=== PATIENT | female | born 1955 ===

== ENCOUNTER 2021-09-18 08:00 | Outpatient (CLI) | payer MEDICARE, OTHER ==
[2021-09-18 16:02] LABS: BILIRUBIN,URINE NEGATIVE (NEGATIVE); GLUCOSE, URINE (UA) NEGATIVE (NEGATIVE); KETONES,URINE (UA) NEGATIVE (NEGATIVE); LEUKOCYTE ESTERASE, URINE NEGATIVE (NEGATIVE); NITRITE,URINE NEGATIVE (NEGATIVE); OCCULT BLOOD,URINE TRACE-INTA (NEGATIVE); PROTEIN,URINE NEGATIVE (NEGATIVE); UROBILINOGEN,URINE 0.2 (NORMAL) E.U./dL (NORMAL)
[2021-09-18 16:07] LABS: CLARITY,URINE CLEAR (CLEAR)
== END 2021-09-18 23:59 | disposition home or self-care (01) ==
LOC: LAB.R 08:00
PROVIDERS: ATTEND Internal Medicine
DX: R68.83 Chills (without fever) (principal); R39.9 Unspecified symptoms and signs involving the genitourinary system
CPT/HCPCS: 81003; 87086

== ENCOUNTER 2021-11-08 12:46 | Outpatient (CLI) | payer MEDICARE ==
[2021-11-08 13:18] LABS: ALBUMIN 4.4 g/dL (3.2-5.5); ALBUMIN/GLOBULIN RATIO 1.4 (1.0-2.2); ALKALINE PHOSPHATASE 70 IU/L (42-121); ALT ALANINE AMINOTRANSFERASE 17 IU/L (10-60); AST ASPARTATE AMINOTRANSFERASE 19 IU/L (10-42); BILIRUBIN,TOTAL 0.3 mg/dL (0.2-1.0); BUN - BLOOD UREA NITROGEN 13 mg/dL (6-20); CALCIUM 9.6 mg/dL (8.5-10.3); CARBON DIOXIDE - CO2 27 mmol/L (21-32); CHLORIDE 101 mmol/L (101-111); CHOLESTEROL 270 mg/dL; CREATININE 0.7 mg/dL (0.4-1.0); GFR - MDRD 83 (>89); GLUCOSE 92 mg/dL (70-100); HDL CHOLESTEROL 65 mg/dL; LDL CHOLESTEROL,CALCULATED 190 mg/dL; SODIUM 138 mmol/L (135-145); TOTAL PROTEIN 7.5 g/dL (6.7-8.2); TRIGLYCERIDES 74 mg/dL; VLDL CHOLESTEROL 15 mg/dL
[2021-11-08 13:19] LABS: CHOL/HDL RATIO 4.2 (<4.4); LDL/HDL RATIO 2.9 (<4.4)
[2021-11-08 13:31] LABS: THYROID STIMULATING HORMONE 2.32 uIU/mL (0.34-5.60)
[2021-11-08 13:51] LABS: BILIRUBIN,URINE NEGATIVE (NEGATIVE); GLUCOSE, URINE (UA) NEGATIVE (NEGATIVE); KETONES,URINE (UA) NEGATIVE (NEGATIVE); LEUKOCYTE ESTERASE, URINE NEGATIVE (NEGATIVE); NITRITE,URINE NEGATIVE (NEGATIVE); OCCULT BLOOD,URINE TRACE-INTA (NEGATIVE); PROTEIN,URINE NEGATIVE (NEGATIVE); UROBILINOGEN,URINE 0.2 (NORMAL) E.U./dL (NORMAL)
[2021-11-08 13:52] LABS: CLARITY,URINE CLEAR (CLEAR)
[2021-11-08 14:42] LABS: BACTERIA,URINE Rare /HPF (None Seen); RBC,URINE 0-5 /HPF (0-5); SQUAMOUS EPITHELIAL CELL,UR RARE Squamous (<= Few); WBC,URINE 0-3 /HPF (0-5)
[2021-11-08 16:05] LABS: BASOPHILS % (AUTO) 0.5 %; EOSINOPHILS # (AUTO) 0.4 10^3/uL (0.0-0.7); EOSINOPHILS % (AUTO) 4.7 %; HCT - HEMATOCRIT 47.9 % (37.0-47.0); HGB - HEMOGLOBIN 15.3 g/dL (12.0-16.0); LYMPHOCYTES # (AUTO) 1.4 10^3/uL (1.5-3.5); LYMPHOCYTES % (AUTO) 18.4 %; MEAN CORPUSCULAR HEMOGLOBIN 29.5 pg (27.0-31.0); MEAN CORPUSCULAR HGB CONC 31.9 g/dL (32.0-36.0); MEAN CORPUSCULAR VOLUME 92.5 fL (81.0-99.0); MEAN PLATELET VOLUME 10.2 fL (7.9-10.8); MONOCYTES # (AUTO) 0.7 10^3/uL (0.0-1.0); MONOCYTES % (AUTO) 8.7 %; NEUTROPHILS # (AUTO) 5.3 10^3/uL (1.5-6.6); NEUTROPHILS % (AUTO) 67.3 %; PLT - PLATELET COUNT 260 10^3/uL (130-450); RED BLOOD COUNT 5.18 10^6/uL (4.20-5.40); RED CELL DISTRIBUTION WIDTH 13.4 % (12.0-15.0); WHITE BLOOD COUNT 7.8 x10^3/uL (4.8-10.8)
== END 2021-11-08 12:47 | disposition home or self-care (01) ==
LOC: LAB.R 12:46
PROVIDERS: ATTEND Internal Medicine
DX: Z00.00 Encounter for general adult medical examination without abnormal findings (principal); R53.83 Other fatigue; Z13.6 Encounter for screening for cardiovascular disorders; N76.0 Acute vaginitis
CPT/HCPCS: 80053; 80061; 81001; 82607; 83721; 84443; 85025; 87086

== ENCOUNTER 2022-01-24 08:51 | Outpatient (CLI) | payer MEDICARE ==
--- NOTE | 2022-01-24 11:02 | Ultrasound Report ---
PROCEDURE: Pelvic w/Transvaginal INDICATIONS: RLQ ABD PAIN TECHNIQUE: Real-time scanning was performed of the pelvic organs, with image documentation. Additional endovagi nal scanning was necessary due to incomplete visualization of the adnexal and endometrial structures by transabdominal scanning. COMPARISON: None. FINDINGS: Uterus: Uterus is anteverted and normal in size at 6.7 x 3.7 x 4.3 cm. The myometrium is homogeneou s. The endometrium measures 3.4 mm in combined thickness. There appears to be a small right-sided anterior subserosal fibroid measuring 2.1 cm in maximal dimen nadeem. There are 2 calcifications present within the myometrium measuring 1.8 and a 1.1 cm respectivel y which likely represent calcified uterine fibroids. Ovaries: The right ovary is not visualized. The left ovary measures 1.9 x 1.5 x 1.2 cm, with a calculated ovarian volume of 1.8 cc. The ovaries have a normal sonographic appearance. No adnexal masses are seen. Other: No pathologic free abdominal or pelvic fluid. IMPRESSION: 1. Calcified and noncalcified uterine fibroids. The largest right subserosal fibroid measures 1.2 cm in maximal dimension. 2. Right ovary not definitely visualized. Reviewed by: Jama Richmond MD on 01/24/2022 11:01 AM PDT Approved by: Jama Richmond MD on 01/24/2022 11:01 AM PDT Station ID: [id number]
== END 2022-01-24 08:52 | disposition home or self-care (01) ==
LOC: DI 08:51
PROVIDERS: ATTEND Obstetrics & Gynecology
DX: D25.2 Subserosal leiomyoma of uterus (principal)

== ENCOUNTER 2022-03-05 10:01 | Outpatient (CLI) | payer MEDICARE | END 2022-03-05 10:02 | disposition EMS.NT | LOC: EMS 10:01 | DX: Z04.1 Encounter for examination and observation following transport accident (principal) ==

== ENCOUNTER 2023-05-03 14:49 | Outpatient (CLI) | payer MEDICARE ==
--- NOTE | 2023-05-03 15:41 | XRAY Report ---
PROCEDURE: Ankle 3 View RT INDICATIONS: ANKLE PAIN TECHNIQUE: 3 views of the ankle were acquired. COMPARISON: None. FINDINGS: Bones: Curvilinear calcification along the medial aspect of the medial malleolus. Rounded calcificat ion along the inferior aspect of the lateral malleolus. Soft tissues: Moderate tibiotalar joint effusion. Achilles tendon appears normal. IMPRESSION: Age-indeterminate fractures of the medial and lateral malleoli. Reviewed by: Silvio Linder MD on 05/03/2023 3:40 PM PST Approved by: Silvio Linder MD on 05/03/2023 3:40 PM PST Station ID: [id number]
--- NOTE | 2023-05-03 15:41 | XRAY Report ---
PROCEDURE: Foot 3 View RT INDICATIONS: ANKLE PAIN TECHNIQUE: 3 views of the foot were acquired. COMPARISON: None. FINDINGS: Bones: Healed fifth metatarsal shaft fracture. Marked hallux valgus with moderate degenerative beaver es at this joint. Soft tissues: No suspicious soft tissue calcifications or masses. IMPRESSION: Healed fifth metatarsal fracture deformity. Reviewed by: Silvio Linder MD on 05/03/2023 3:40 PM [facility] Approved by: Silvio Linder MD on 05/03/2023 3:40 PM [facility] Station ID: [id number]
== END 2023-05-03 14:50 | disposition home or self-care (01) ==
LOC: DI 14:49
PROVIDERS: ATTEND Internal Medicine
DX: S92.351D Displaced fracture of fifth metatarsal bone, right foot, subsequent encounter for fracture with routine healing (principal); S82.841D Displaced bimalleolar fracture of right lower leg, subsequent encounter for closed fracture with routine healing

== ENCOUNTER 2023-07-04 08:19 | Outpatient (CLI) | payer MEDICARE ==
--- NOTE | 2023-07-04 13:51 | DEXA Report ---
PROCEDURE: Dexa Spine and/or Hip INDICATIONS: POST MENOAPUSAL TECHNIQUE: Dual energy x-ray absorptiometry (DXA) was performed on a [employer]. Regions measur ed are the AP Spine, femoral neck, and if needed forearm. COMPARISON: None FINDINGS: Lumbar Spine: Bone Mineral Density: 0.943 g/cm/cm,T score: -2.0. Left Femoral Neck: Bone Mineral Density: 0.847 g/cm/cm, T score: -1.4. Left Hip: Bone Mineral Density: 0.807 g/cm/cm,T score: -1.6. (T score greater or equal to -1.0: NORMAL) (T score from -1.1 to -2.4: OSTEOPENIA) (T score less than or equal to -2.5 to: OSTEOPOROSIS) Impression: By WHO criteria, this patient has low bone density (osteopenia). Patients with diagnosis of osteoporosis or osteopenia should have regular bone mineral density assess ment. For those eligible for Medicare, routine testing is allowed once every 2 years. Testing frequ ency can be increased for patients who have rapidly progressing disease or for those who are receivin g medical therapy to restore bone mass. Reviewed by: Pavel Combs MD on 07/04/2023 1:49 PM PST Approved by: Pavel Combs MD on 07/04/2023 1:49 PM PST Station ID: [id number]
== END 2023-07-04 08:20 | disposition home or self-care (01) ==
LOC: DI 08:19
PROVIDERS: ATTEND Internal Medicine
DX: Z78.0 Asymptomatic menopausal state (principal); M85.89 Other specified disorders of bone density and structure, multiple sites

== ENCOUNTER 2023-07-11 08:00 | Outpatient (CLI) | payer MEDICARE ==
--- NOTE | 2023-07-11 21:26 | XRAY Report ---
PROCEDURE: Foot 3 View RT INDICATIONS: RIGHT FOOT PAIN TECHNIQUE: 3 views of the foot were acquired. COMPARISON: None. FINDINGS: Bones: Mildly displaced mid fifth metatarsal shaft fracture. Alignment is stable. Mild appearance of interval callus formation indicating healing. Scattered IP degenerative narrowing. Soft tissues: No suspicious soft tissue calcifications or masses. IMPRESSION: I'll degree of interval healing with stable alignment of fifth metatarsal diaphyseal fracture. Reviewed by: Amberly Franks MD on 07/11/2023 9:25 PM [facility] Approved by: Amberly Franks MD on 07/11/2023 9:25 PM [facility] Station ID: [id number]
--- NOTE | 2023-07-11 21:27 | XRAY Report ---
PROCEDURE: Ankle 3 View RT INDICATIONS: RIGHT ANKLE PAIN TECHNIQUE: 3 views of the ankle were acquired. COMPARISON: Ankle x-ray 05/03/2023 FINDINGS: Bones: As previously identified, calcifications are present along the medial aspect of the medial ma lleolus as well as the inferior lateral malleolus. Appearances are stable. Soft tissues: Mild persistent ankle edema. Achilles tendon appears normal. IMPRESSION: Persistent appearance of age-indeterminate avulsion injuries. Reviewed by: Amberly Franks MD on 07/11/2023 9:26 PM PST Approved by: Amberly Franks MD on 07/11/2023 9:26 PM PST Station ID: [id number]
== END 2023-07-11 23:59 | disposition home or self-care (01) ==
LOC: DI.WOS 08:00
PROVIDERS: ATTEND Physician Assistant Surgical
DX: S92.351A Displaced fracture of fifth metatarsal bone, right foot, initial encounter for closed fracture (principal)

== ENCOUNTER 2024-01-22 07:46 | Day surgery (SDC) | payer MEDICARE ==
[2024-01-22] MEDS: LACTATED RINGERS 1,000 ML IV ONE (07:49)
--- NOTE | 2024-01-22 08:08 | ANESTHESIA ---
Pre-Anesthesia VS, & Labs - Diagnosis abdominal bloating and diarrhea - Procedure diagnostic colonoscopy Height: 5 ft 6 in Weight (kg): 67.2 kg Body Mass Index: 23.9 BMI Classification: Normal - NPO >8 hours Last Fluid Intake: 0530 - Is Patient ?: No Home Medications and Allergies Allergies/Adverse Reactions: Allergies Allergy/AdvReac Type Severity Reaction Status Date / Time fluconazole Allergy Rash Verified 01/22/24 09:15 Anes History & Medical History - Anesthetic History Family history of Anesthesia Complications: Denies Family history of Malignant Hyperthermia: Denies - Medical History Cardiovascular: reports: None Pulmonary: reports: None Gastrointestinal: reports: Chronic diarrhea Urinary: reports: None Neuro: reports: None Musculoskeletal: reports: None Endocrine/Autoimmune: reports: None Blood Disorders: reports: None Skin: reports: None Smoking Status: Never smoker Psychosocial: reports: Cannabis (daily) History of Cancer?: No Exam General: Alert, Oriented x3, Cooperative, No acute distress Dental: Poor dentition Mouth Openin Fingerbreadth Neck Mobility: Normal Mallampati classification: II Thyromental Distance: 4-6 cm Mental/Cognitive Status: Alert/Oriented X3, Normal for patient Plan Anesthesia Type: General, Total IV Consent for Procedure(s) Verified and Reviewed: Yes Code Status: Attempt Resuscitation ASA classification: 2-Mild systemic disease Is this case an emergency?: No
[2024-01-22] MEDS ORDERED: LIDOCAINE-MPF 2% 5 ML VIAL ONE (09:18)
[2024-01-22] MEDS ORDERED: PROPOFOL 500 MG/50 ML 500 MG/50 ML VIAL ONE (09:18)
[2024-01-22] MEDS: LACTATED RINGERS 200 ML IV ONE ×2 (10:56→11:44)
--- NOTE | 2024-01-22 12:50 | ANESTHESIA POST OP EVALUATION ---
Anesthesia Post Eval - Post Anesthesia Eval CV Function Including HR & BP: Stable Pain Control: Satisfactory Nausea & Vomiting: Negative Mental Status: Baseline Respiratory Status: Airway Patent Hydration Status: Satisfactory Anesthesia Complications: None
== END 2024-01-22 07:47 | disposition home or self-care (01) ==
LOC: SDS 07:46
PROVIDERS: ATTEND Surgery
PROC: 0DBL8ZX Excision of Transverse Colon, Via Natural or Artificial Opening Endoscopic, Diagnostic (ICD-10-PCS; 2024-01-22)
PROC: 0DBN8ZX Excision of Sigmoid Colon, Via Natural or Artificial Opening Endoscopic, Diagnostic (ICD-10-PCS; 2024-01-22)
PROC: 0DBP8ZX Excision of Rectum, Via Natural or Artificial Opening Endoscopic, Diagnostic (ICD-10-PCS; 2024-01-22)
PROC: 0DBM8ZX Excision of Descending Colon, Via Natural or Artificial Opening Endoscopic, Diagnostic (ICD-10-PCS; 2024-01-22)
PROC: 0DBK8ZX Excision of Ascending Colon, Via Natural or Artificial Opening Endoscopic, Diagnostic (ICD-10-PCS; principal; 2024-01-22 09:00)
DX: K52.9 Noninfective gastroenteritis and colitis, unspecified (principal); K64.1 Second degree hemorrhoids; K63.89 Other specified diseases of intestine; R14.0 Abdominal distension (gaseous)
CPT/HCPCS: 45380; J7120